=== PATIENT | male | born 1960 | race African-American/Black ===

== ENCOUNTER 2020-08-29 07:41 | Day surgery (SDC) | payer MEDICARE, MEDICAID ==
[~2020-08-29] VITALS: Ht 190.5 cm; Wt 109.0 kg
[2020-08-29] VITALS (8 sets, daily range): BP systolic 132–145; BP diastolic 90–100
[~2020-08-29 07:41] MED LIST: ATOR40TA71 PO; CICL6.1H4 INH; FERR325C PO; FOLI1TAB16 PO; FURO-149 PO; LEVE250T PO; LINE600T14 PO; LISI10TA27 PO; METO50TA7 PO; NITR0.4T48 SL; OLAN10TA3 PO; QUET400T5 PO; SPIR25TA5 PO; THI100T PO; VALP250C44 PO; VITA1CAP
[2020-08-29] MEDS ORDERED: MIDAZolam 1 MG/ML 5ML VIAL ONE (08:35)
[2020-08-29] MEDS ORDERED: fentaNYL/PF 50MCG/1 ML 2ML syringe ONE (08:35)
[2020-08-29] MEDS ORDERED: FINA5TAB11 PO (09:15)
[2020-08-29] MEDS ORDERED: SENN-145 PO (09:15)
[2020-08-29] MEDS ORDERED: vitamin b1 PO (09:15)
[2020-08-29] MEDS ORDERED: MULT-1079 PO (09:15)
[2020-08-29] MEDS ORDERED: FLO0.4C PO (09:15)
[2020-08-29] MEDS ORDERED: PANT-47 PO (09:15)
[2020-08-29] MEDS ORDERED: DOCU100C40 PO (09:15)
[2020-08-29] MEDS ORDERED: CHOL400T57 PO (09:15)
[2020-08-29] MEDS ORDERED: MELA5TAB12 PO (09:15)
[2020-08-29] MEDS ORDERED: METF-900 PO (09:15)
[2020-08-29] MEDS ORDERED: FLUT12AE9 INH (09:15)
[2020-08-29] MEDS ORDERED: LEVE500T99 PO (09:15)
[2020-08-29] MEDS ORDERED: CYAN50008 PO (09:15)
[2020-08-29] MEDS ORDERED: NITR50CA PO (09:16)
[2020-08-29] MEDS ORDERED: PSYL575P22 PO (09:16)
--- NOTE | 2020-08-29 12:33 | NUR ---
AWAKE VS WNL, NO CO PAIN, DISCH INSTR GIVEN TO PT AND APPLICATION SECURITY CONSULTANT. UNDERSTOOD, DISCH HOME IV DCD.
== END 2020-08-29 12:33 | disposition home or self-care (01) ==
LOC: GI LAB 07:41
PROVIDERS: ATTEND Internal Medicine Gastroenterology
DX: Z12.11 Encounter for screening for malignant neoplasm of colon (principal); K64.8 Other hemorrhoids; E11.9 Type 2 diabetes mellitus without complications; I10 Essential (primary) hypertension; F17.210 Nicotine dependence, cigarettes, uncomplicated; Z79.899 Other long term (current) drug therapy; Z79.84 Long term (current) use of oral hypoglycemic drugs
CPT/HCPCS: G0121; G0500; J2250; J3010; J7040; 45378; 99152; A4620

== ENCOUNTER → 2023-12-17 | Outpatient (CLI) | payer MEDICARE, MEDICAID ==
[~2023-12-17] MED LIST changes: +CHOL400T57 PO; -CICL6.1H4 INH; +CYAN50009 PO; +DOCU100C40 PO; +FINA5TAB11 PO; +FLO0.4C PO; +FLUT12AE9 INH; -FOLI1TAB16 PO; -FURO-149 PO; -LEVE250T PO; +LEVE500T99 PO; -LINE600T14 PO; -LISI10TA27 PO; +MELA5TAB12 PO; +METF-900 PO; +MULT-1079 PO; -NITR0.4T48 SL; +NITR50CA PO; -OLAN10TA3 PO; +PANT-47 PO; +PSYL575P22 PO; +SENN-367 PO; -SPIR25TA5 PO; -THI100T PO; -VALP250C44 PO; -VITA1CAP; +vitamin b1 PO
== END | disposition home or self-care (01) ==
LOC: RAD 09:49
PROVIDERS: ATTEND Nurse Practitioner Psychiatric/Mental Health
DX: Z79.899 Other long term (current) drug therapy (principal)
CPT/HCPCS: 93005